=== PATIENT | female | born 1940 | race African-American/Black ===

== ENCOUNTER 2017-03-10 06:36 | Day surgery (SDC) | payer OTHER ==
[2017-03-07 12:15] LABS: HEMATOCRIT 38.1 % (36.0-48.0); HEMOGLOBIN 11.7 g/dL (12.0-16.0)
[2017-03-07 12:38] LABS: CALCIUM, SERUM 9.1 MG/DL (8.5-10.4); CHLORIDE, SERUM 106 MMOL/L (96-112); CO2 (CARBON DIOXIDE) 27 MMOL/L (24-34); GFR AFRICAN AMERICAN 57 ML/MIN (>=60); GFR NON AFRICAN AMERICAN 49 ML/MIN (>=60); POTASSIUM, SERUM 4.1 MMOL/L (3.5-5.3); SODIUM, SERUM 141 MMOL/L (135-148)
[2017-03-07 12:39] LABS: BUN (BLOOD UREA NITROGEN) 21 MG/DL (6-23); GLUCOSE, SERUM 209 MG/DL (60-99)
--- NOTE | ~2017-03-10 | OP ---
Record Of Operation [facility] [address] [place]. [address] NAME: DAVID BROWN : 44 [place] [facility] [place] [id number] AGE: 76 ADM/REG DATE : 03/10/17 MR#: [id number] REPORT SERV DATE: 03/10/17 DICTATED BY: HANNAH CUEVAS DATE: 03/10/17 REPORT STATUS : Draft TRANSCRIBED BY: MODL DATE: 03/10/17 DATE OF PROCEDURE: 03/10/2017 PREOPERATIVE DIAGNOSIS: Left cubital tunnel syndrome, cervical radiculopathy, diabetic neuropathy. POSTOPERATIVE DIAGNOSIS: Left cubital tunnel syndrome, cervical radiculopathy, diabetic neuropathy. PROCEDURE: Left cubital tunnel release. SURGEON: Hannah Cuevas M.D. COMPLICATIONS: None. ANESTHESIA: General endotracheal. INDICATIONS: This 76-year-old female has a known C7 and C8 involvement and neuropathy as well, but also has cubital tunnel syndrome. We discussed the overlay and the multifactorial etiology of her problems. She wished to proceed with operative intervention. DESCRIPTION OF PROCEDURE: The patient was induced in supine position. Left upper extremity was prepped and draped in the standard surgical fashion. Time-out protocol was enforced. Ancef was administered. A curvilinear incision was made over the medial epicondyle. We dissected through the medial antebrachial cutaneous nerves and preserved them. The cubital tunnel was isolated and released proximally. We released Linda's bands and then released distally to the FCU aponeurosis and the superficial fascia of the FCU was released for about 8 cm zone of release. We then ranged the elbow, there was no subluxation, therefore transposition was not performed. There was vast wasting which was quite clear at a very tight area of the Linda's band. We injected Marcaine with epi. Closed the wound in layers. The patient tolerated the procedure well and was taken to the PACU in stable condition. POSTOPERATIVE PLAN: Early range of motion. Routine wound check. BSS/RADHA Hannah Cuevas M.D. / [id number] CC: Record Of Operation [place] [place] [address] [place]. [address] NAME: DAVID BROWN : 44 STATUS : REG [facility]#: [id number] AGE: 76 ADM/REG DATE : 03/10/17 MR#: [id number] REPORT SERV DATE: 03/10/17 DICTATED BY: HANNAH CUEVAS. DATE: 03/10/17 REPORT STATUS : Draft TRANSCRIBED BY: MODL DATE: 03/10/17 Conchis Marie
[~2017-03-10 06:36] MED LIST: AMB10 PO; ASA5GR PO; ASAB PO; ATEN100 PO; AUG875 PO; BRILINTA90 MG PO; BYETTA10 SC; CARDCD240 PO; CARDCD360 PO; CELEXA20 PO; CELEXA40 MG PO; COREG25 PO; COZ50 PO; CRESTOR10 PO; CYMBALTA60 PO; DIGITEK0.125 MG PO; DILTIAZEM PO; EFFEXOR PO; EFFEXXR75 PO; EMERGEN-C PO; FLEX PO; FLEXERIL5 MG PO; FLONASE NAS; GLUCOPHAGE1000 MG PO; GLUCPH PO; IMDUR60 PO; KLOR-CON M2020 MEQ PO; L40 PO; LEVOTHROID75 MCG PO; LEVOTHYROXIN75 MCG PO; LOP100 PO; LORTAB10 PO; LOSARTAN PO; MAGNESIUM SUPPLEMENT PO; MAGOX4 PO; METFORMIN PO; METHOC500B PO; METOPROLOL; MIRALAXPKT PO; NEUR100 PO; NEUR400 PO; NEXIUM40 PO; NITROII20C TOP; NITROQUICK0.4 MG PO; NITROSTAT0.4 MG SL; NORCO1 TAB PO; NORV10 PO; NORV5 PO; PEPCID40 MG OR; PEPCID40 MG PO; PLAVIX PO; POTASSIUM GLUCONATE PO; POTASSIUM PO; PRAVACHOL40 MG PO; PRIN5 PO; PROAIR HFA INH; SAS500 PO; SULFAZINE500 MG PO; SYMBICORT 160/41 INH INH; SYMBICORT 80/4.1 INH INH; SYN075 PO; VITAMIN C PO; VITAMIN C100 MG PO; VITAMIN D1000 UNI1 PO; VITAMIN D3 PO; VITC500 PO; ZETIA PO
== END 2017-03-10 17:40 | disposition home or self-care (01) ==
LOC: SDC 06:36
PROVIDERS: Orthopaedic Surgery Sports Medicine
PROC: 01N40ZZ Release Ulnar Nerve, Open Approach (ICD-10-PCS; principal; 2017-03-10 08:30)
DX: G56.22 Lesion of ulnar nerve, left upper limb (principal); E11.40 Type 2 diabetes mellitus with diabetic neuropathy, unspecified; M54.12 Radiculopathy, cervical region; M19.022 Primary osteoarthritis, left elbow; F32.9 Major depressive disorder, single episode, unspecified; E03.9 Hypothyroidism, unspecified; G47.33 Obstructive sleep apnea (adult) (pediatric); E11.51 Type 2 diabetes mellitus with diabetic peripheral angiopathy without gangrene; E78.00 Pure hypercholesterolemia, unspecified; F41.9 Anxiety disorder, unspecified; I25.10 Atherosclerotic heart disease of native coronary artery without angina pectoris; Z79.82 Long term (current) use of aspirin; Z79.899 Other long term (current) drug therapy; Z79.891 Long term (current) use of opiate analgesic; Z99.89 Dependence on other enabling machines and devices; Z83.3 Family history of diabetes mellitus; Z82.49 Family history of ischemic heart disease and other diseases of the circulatory system; Z90.89 Acquired absence of other organs; Z96.652 Presence of left artificial knee joint; Z90.710 Acquired absence of both cervix and uterus; Z98.890 Other specified postprocedural states
CPT/HCPCS: 80048; 82962; 85014; 85018; 93005; 94640; A9270-GY; J0690; J2405; J2710; J3010